=== PATIENT | female | born 1980 | race African-American/Black ===

== ENCOUNTER 2023-09-11 12:47 | Emergency (ER) | payer OTHER ==
[2023-09-11 12:58] VITALS: BP 117/80; PULSE 79; RESP 18; TEMP 98.4; BMI 27.1
[2023-09-11] MEDS ORDERED: TETRACAINE 0.5% HCL 0.6ML DROPPER.BOTTLE OU ONE (13:59)
[2023-09-11] MEDS ORDERED: FLUORESCEIN NA 1 EA STRIP OU ONE (13:59)
[2023-09-11] MEDS ORDERED: TETRACAINE 0.5% OPHTH SOLN 2 ML BOTTLE ONE (14:07)
[2023-09-11] MEDS ORDERED: FLUORESCEIN NA 1 EA STRIP ONE (14:07)
[2023-09-11] MEDS ORDERED: ACETAMINOPHEN 1000 MG/100 ML BAG IVPB ONE (14:21)
[2023-09-11] MEDS ORDERED: SODIUM CHLORIDE 0.9% 500 ML INFUS.BAG IV ONE (14:21)
[2023-09-11] MEDS ORDERED: METOCLOPRAMIDE HCL INJECTION 10 MG/2 ML VIAL IVPB ONE (14:21)
[2023-09-11] MEDS ORDERED: METOCLOPRAMIDE HCL INJECTION 10 MG/2 ML VIAL ONE (14:33)
[2023-09-11] MEDS ORDERED: ACETAMINOPHEN INJECTION 100 ML IVPB ONE (14:34)
[2023-09-11 14:49] LABS: HEMATOCRIT 38.7 % (32.4-45.2); HEMOGLOBIN 11.7 GM/dL (10.7-15.3); MCH 22.2 pg (25.7-33.7); MCHC 30.3 g/dl (32.0-36.0); MEAN CELL VOLUME 73.1 fl (80-96); MEAN PLT VOLUME 10.5 fl (7.5-11.1); PLATELET COUNT 148 10^3/uL (134-434); RBC 5.29 M/mm3 (3.60-5.2); RDW 17.5 % (11.6-15.6); WHITE BLOOD COUNT 5.1 K/mm3 (4.0-10.0)
[2023-09-11 14:55] LABS: CALCIUM 8.9 mg/dL (8.5-10.1)
[2023-09-11 14:56] LABS: ALBUMIN 3.8 g/dl (3.4-5.0); BLOOD UREA NITROGEN 8.8 mg/dL (7-18)
[2023-09-11 14:59] LABS: CREATININE 0.9 mg/dL (0.55-1.3)
[2023-09-11 15:01] LABS: BILIRUBIN,TOTAL 0.5 mg/dL (0.2-1)
[2023-09-11 17:11] LABS: EPI CELLS 11 /uL (0-25.1); HCG,QUALITATIVE URINE Negative; HYALINE CASTS 0 /uL (0-3.1); URINE APPEARANCE CLEAR; URINE BACTERIA 238 /uL (0-1359); URINE BILIRUBIN NEGATIVE (NEGATIVE); URINE COLOR YELLOW; URINE GLUCOSE (UA) NEGATIVE (NEGATIVE); URINE KETONE NEGATIVE (NEGATIVE); URINE LEUK ESTERASE TRACE (NEGATIVE); URINE NITRITE NEGATIVE (NEGATIVE); URINE PROTEIN NEGATIVE (NEGATIVE); URINE RBC 5 /uL (0-23.9); URINE UROBILINOGEN 0.2 mg/dL (0.2-1.0); URINE WBC 24 /uL (0-25.8)
== END 2023-09-11 19:18 | disposition home or self-care (01) ==
LOC: JER 12:47
PROC: 3E033NZ Introduction of Analgesics, Hypnotics, Sedatives into Peripheral Vein, Percutaneous Approach (ICD-10-PCS; principal; 2023-09-11)
PROC: 3E033GC Introduction of Other Therapeutic Substance into Peripheral Vein, Percutaneous Approach (ICD-10-PCS; 2023-09-11)
DX: R51.9 Headache, unspecified (principal); H53.8 Other visual disturbances; R00.2 Palpitations; R11.2 Nausea with vomiting, unspecified; R06.02 Shortness of breath; K59.00 Constipation, unspecified
CPT/HCPCS: 36415; 71046-TC-FY; 80053; 81003; 84443; 84484; 84703; 85027; 87086; 93005; 93010; 99285-25

== ENCOUNTER 2024-05-18 14:19 | Emergency (ER) | payer OTHER ==
[2024-05-18 14:27] VITALS: BP 111/63; PULSE 73; RESP 18; TEMP 99.4; BMI 25.8
[2024-05-18] MEDS ORDERED: METOCLOPRAMIDE HCL INJECTION 10 MG/2 ML VIAL ONE (15:27)
[2024-05-18] MEDS: METOCLOPRAMIDE HCL INJECTION 10 MG/2 ML VIAL IVPUSH ONE (15:40)
[2024-05-18 15:49] LABS: BASO % 0.8 % (0-2.0); EOS % 1.4 % (0-4.5); HEMATOCRIT 33.5 % (32.4-45.2); MCH 20.2 pg (25.7-33.7); MEAN CELL VOLUME 67.3 fl (80-96); MEAN PLT VOLUME 9.1 fl (7.5-11.1); MONO % 9.6 % (3.8-10.2); NEUT % 59.2 % (42.8-82.8); PLATELET COUNT 115 10^3/uL (134-434); RBC 4.98 M/mm3 (3.60-5.2); RDW 18.7 % (11.6-15.6); WHITE BLOOD COUNT 4.8 K/mm3 (4.0-10.0)
[2024-05-18 16:06] LABS: POTASSIUM 4.2 mmol/L (3.5-5.1)
[2024-05-18 16:08] LABS: CALCIUM 8.7 mg/dL (8.5-10.1)
[2024-05-18 16:09] LABS: ALBUMIN 3.9 g/dl (3.4-5.0); BLOOD UREA NITROGEN 18.7 mg/dL (7-18)
[2024-05-18 16:13] LABS: BILIRUBIN,TOTAL 0.4 mg/dL (0.2-1); TOT PROT 7.8 g/dl (6.4-8.2)
[2024-05-18 16:23] LABS: ANISOCYTOSIS 0; MACROCYTOSIS 0
== END 2024-05-18 17:30 | disposition home or self-care (01) ==
LOC: JER 14:19
PROC: 3E033GC Introduction of Other Therapeutic Substance into Peripheral Vein, Percutaneous Approach (ICD-10-PCS; principal; 2024-05-18)
DX: R51.9 Headache, unspecified (principal); R20.0 Anesthesia of skin; M25.522 Pain in left elbow
CPT/HCPCS: 36415; 80053; 84443; 84484; 85025; 93005; 93010; 99284-25